=== PATIENT | male | born 1995 | race Caucasian/White ===

== ENCOUNTER 2018-07-01 11:47 | Emergency (ER) | payer MEDICAID, OTHER ==
[~2018-07-01] VITALS: Ht 175.3 cm; Wt 72.6 kg
[2018-07-01 11:56] VITALS: BP_SYST 149
[2018-07-01] MEDS ORDERED: KETOROLAC TROMETHAMINE 30 MG VIAL IM ONE (12:30)
[2018-07-01 13:08] VITALS: BP_SYST 138
== END 2018-07-01 13:08 | disposition home or self-care (01) ==
LOC: SED 11:47
DX: H66.92 Otitis media, unspecified, left ear (principal); J02.9 Acute pharyngitis, unspecified
CPT/HCPCS: 86403; 87081; 96372; 99283; J1885; 36415

== ENCOUNTER 2018-07-21 13:20 | Emergency (ER) | payer MEDICAID ==
[~2018-07-21] VITALS: Ht 175.3 cm; Wt 77.1 kg
[2018-07-21 13:30] VITALS: BP_SYST 139
--- NOTE | 2018-07-21 13:34 | NUR ---
Patient to ER bed 8 to gown for evaluation. Side rails up. Report given to Shell SKELTON.
--- NOTE | 2018-07-21 13:35 | NUR ---
ER at bedside examining patient.
--- NOTE | 2018-07-21 13:40 | NUR ---
patient arrived AOx4 from home with c/o sore throat pain x 3 weeks. patient stated he was given antibiotics from the sore throat last visit. patient states the sore throat did not get better. patients throat is red, without white patches. patient states he has trouble eating and drinking. however, when given medication, patient did not drool, gagging and swolled it whole without observed distress. no other complaint or injury at this time.
[2018-07-21] MEDS ORDERED: IBUPROFEN 800 MG TABLET PO ONE (14:00)
[2018-07-21 14:05] VITALS: BP_SYST 130
--- NOTE | 2018-07-21 14:05 | NUR ---
Patient given written and verbal discharge instructions and verbalizes understanding. ER MD discussed with patient the results and treatment provided. Patient in stable condition. ID arm band removed. Rx of motrin given. Patient educated on pain management and to follow up with PMD. Pain Scale 3/10. Opportunity for questions provided and answered. Medication side effect fact sheet provided.
== END 2018-07-21 14:05 | disposition home or self-care (01) ==
LOC: SED 13:20
DX: B34.9 Viral infection, unspecified (principal)
CPT/HCPCS: 99282

== ENCOUNTER 2023-11-12 17:17 | Emergency (ER) | payer MEDICAID, OTHER ==
[~2023-11-12] VITALS: Ht 177.8 cm; Wt 88.5 kg
[2023-11-12 17:30] VITALS: BP_SYST 141; PULSE 70; RESP 18; TEMP 97.6; O2SAT 99
[2023-11-12 18:08] LABS: COVID19 ANTIGEN SOFIA FIA NEGATIVE (NEGATIVE)
[2023-11-12 18:10] LABS: INFLUENZA TYPE A Negative (NEGATIVE); INFLUENZA TYPE B NEGATIVE (NEGATIVE)
[2023-11-12] MEDS ORDERED: MECL-292 PO (18:42)
[2023-11-12] MEDS ORDERED: AUG875 PO (18:42)
[2023-11-12 18:45] VITALS: BP_SYST 141; PULSE 70; RESP 18; TEMP 97.6; O2SAT 99
[2023-11-12 18:59] LABS: BARBITURATE, URINE NEGATIVE (NEG <=200); BENZODIAZEPINE, URINE NEGATIVE (NEG <=150); COCAINE, URINE NEGATIVE (NEG <=150); METHAMPHETAMINES SCREEN,URINE NEGATIVE (NEG <=500); OPIATE, URINE NEGATIVE (NEG <=100); PHENCYCLIDINE SCREEN,URINE NEGATIVE (NEG <=25); UR TRICYCLIC ANTIDEPRESSANTS NEGATIVE (NEG <=300); URINE AMPHETAMINE NEGATIVE (NEG <=500); URINE METHADONE NEGATIVE (NEG <=200); URINE OXYCODONE SCREEN NEGATIVE (NEG <=100)
[2023-11-12 19:00] LABS: CANNABINOID, URINE POSITIVE (NEG <=50)
== END 2023-11-12 18:45 | disposition home or self-care (01) ==
LOC: SED 17:17
DX: H66.91 Otitis media, unspecified, right ear (principal); R42 Dizziness and giddiness; Z20.822 Contact with and (suspected) exposure to COVID-19; Z79.899 Other long term (current) drug therapy; Z79.2 Long term (current) use of antibiotics
CPT/HCPCS: 36415; 80307; 99283